=== PATIENT | male | born 1950 | race Caucasian/White ===

== ENCOUNTER 2022-01-31 13:26 | Emergency (ER) | payer MEDICARE, SELFPAY ==
--- NOTE | ~2022-01-31 | US_ITS ---
EXAMINATION: US venous doppler [facility] DATE: 01/31/2022 17:03 INDICATION: PAIN AND SWELLING . TECHNIQUE: Grayscale images without and with compression and Doppler images of the left lower extremi ty veins were obtained. COMPARISON: None FINDINGS: The left common femoral vein, profunda femoral vein, femoral vein, popliteal vein, peroneal vein, pos terior tibial veins, gastrocnemius vein, and greater saphenous vein are patent. IMPRESSION: 1. Patent left lower extremity veins. No evidence of deep venous thrombosis. Reviewed, dictated and finalized at location [facility]
[2022-01-31 14:27] VITALS: BP 169/89; PULSE 70; RESP 16; TEMP 36.8; O2SAT 98
[2022-01-31 17:49] VITALS: BP 184/90; PULSE 82; RESP 18; TEMP 36.8; O2SAT 98
--- NOTE | 2022-01-31 18:40 | ED.EXTPRO ---
HPI - Extremity Problem General Chief complaint: Extremity Problem,Nontraumatic <FARHAN Rocha Last Filed: 02/01/22 02:55> Stated complaint: left leg swelling <FARHAN Rocha Last Filed: 02/01/22 02:55> Time Seen by Provider: 01/31/22 17:38 <FARHAN Rocha Last Filed: 02/01/22 02:55> Source: patient <FARHAN Rocha Last Filed: 02/01/22 02:55> Mode of arrival: ambulatory <FARHAN Rocha Last Filed: 02/01/22 02:55> Limitations: no limitations <FARHAN Rocha Last Filed: 02/01/22 02:55> History of Present Illness HPI Narrative: Patient is a 71 y/o male who presents to the ED with c/o L lower leg pain, swelling, redness. Patient reports having pain and redness in his left lower anterior kim for the past 1 week. He has pain with initial ambulation, but states the pain improves after taking a few steps. He has been taking Ibuprofen at home. He states the redness has improved some over the past week. He was seen by his deputy sheriff k9 handler today and referred to the ED to rule out a DVT. Patient denies hx of blood clots. Denies SOB, CP. Denies recent long distance travel. He is not on any blood thinners. Denies Hx of gout. Denies wounds. Patient was given an antibiotic and Prednisone by his deputy sheriff k9 handler to take if the [place] was negative for DVT. <FARHAN Rocha Last Filed: 02/01/22 02:55> Related Data Home medications: Home Medications Medication Instructions Recorded Confirmed atorvastatin 10 mg tablet 10 mg PO DAILY 02/05/20 01/31/22 <FARHAN Rocha Last Filed: 02/01/22 02:55> Allergies/Adverse reactions: Allergies Allergy/AdvReac Type Severity Reaction Status Date / Time No Known Allergies Allergy Verified 01/31/22 17:53 <FARHAN Rocha Last Filed: 02/01/22 02:55> Review of Systems Review of Systems: CONSTITUTIONAL: Denies fever, chills, or sweats. EYES: Denies visual changes. ENT: Denies rhinorrhea, congestion, sore throat. CARDIOVASCULAR: Denies chest pain. RESPIRATORY: Denies dyspnea. GASTROINTESTINAL: Denies abdominal pain, nausea, vomiting, or diarrhea. GENITOURINARY: Denies dysuria or hematuria. SKIN: Reports redness/swelling to L lower anterior leg. Denies wounds. MUSCULOSKELETAL: Reports left leg pain. NEUROLOGIC: Denies tingling, numbness, or weakness. <Geena Garcia PA-C - Last Filed: 02/01/22 02:55> All systems reviewed & are unremarkable except as noted in HPI and below <Geena Garcia PA-C - Last Filed: 02/01/22 02:55> PMFSH Past Medical History Medical History: Medical History Arthritis B-cell lymphoma Cancer Encounter for screening for other viral diseases Generalized osteoarthritis of multiple sites Rheumatoid arthritis, seropositive, multiple sites <Geena Garcia PA-C - Last Filed: 02/01/22 02:55> Surgical History Surgical History: Surgical History No pertinent past surgical history <Geena Garcia PA-C - Last Filed: 02/01/22 02:55> Family History Family History: Family History Mother Lupus Father Cerebrovascular accident <Geena Garcia PA-C - Last Filed: 02/01/22 02:55> Social History Social History: Social History Smoking status: Never smoker Alcohol intake: never <Geena Garcia PA-C - Last Filed: 02/01/22 02:55> Exam Narrative: GENERAL: Well appearing, well-nourished, non-toxic, in no acute distress. HEAD: Normocephalic, atraumatic. NECK: Supple. No adenopathy, no masses. RESPIRATORY: Airway patent, respirations nonlabored. Clear to auscultation bilaterally, no rales, rhonchi, wheezing. CARDIOVASCULAR: Re
== END 2022-01-31 19:01 | disposition home or self-care (01) ==
PROVIDERS: Emergency Provider Physician Assistant; PCP Family Medicine
DX: L03.116 Cellulitis of left lower limb (principal); M05.89 Other rheumatoid arthritis with rheumatoid factor of multiple sites; M19.90 Unspecified osteoarthritis, unspecified site; Z85.72 Personal history of non-Hodgkin lymphomas
CPT/HCPCS: 93971; 99284